=== PATIENT | female | born 1960 | race Caucasian/White ===

== ENCOUNTER → 2016-10-15 | Outpatient (CLI) | payer OTHER ==
[2016-07-16 11:00] VITALS: BP 99/58
[~2016-10-15] MED LIST: CALC1TAB75 PO; CRESTOR5 MG PO; DIPH25TA64 PO; DOCU-27 PO; ESTR1TAB4 PO; HYDR-2666 PO; LISI1TAB5 PO; LISI2.5T PO; MULT-246 PO; OXYC1TAB7 PO; TIZA4TAB PO; TRAM50TA PO; UBID100C26 PO; VENL75CA PO
--- NOTE | 2016-10-15 09:45 | KCIC ---
PROCEDURE AP and lateral lumbar spine radiographs 10/15/2016 HISTORY History of lumbar fusion in July of 2016 with left leg pain since. FINDINGS Standing AP and lateral digital radiographs lumbar spine were obtained. Comparison is made to a MRI the lumbar spine dated 12/15/2015. Mild S-shaped curvature of the thoracolumbar spine is seen. The patient is status post discectomy and fusion at L4-5 using pedicle screws, stabilizing rods and bone graft material. Degenerative changes are seen involving the lower thoracic spine and the L1-2, L2-3 and L3-4 disc spaces predominantly consisting of disc space narrowing, vertebral endplate sclerosis and mild to moderate anterior and posterior vertebral body osteophyte formation. Degenerative changes are seen involving the facet joints of the mid and lower lumbar spine. No fracture or subluxation is seen. IMPRESSION 1. Status post discectomy and fusion at L4-5. 2. Degenerative changes are seen involving the lower thoracic and throughout the lumbar spine as outlined above. No acute osseous abnormality is seen. Electronically signed by: Adonay Barclay MD (Oct 15, 2016 09:44:05)
== END | disposition home or self-care (01) ==
LOC: KCIC 08:19
PROVIDERS: ATTEND Neurological Surgery
DX: M47.894 Other spondylosis, thoracic region (principal); Z98.1 Arthrodesis status
CPT/HCPCS: 72100

== ENCOUNTER → 2016-10-18 | Outpatient (CLI) | payer OTHER ==
[2016-07-16 11:00] VITALS: BP 99/58
--- NOTE | 2016-10-18 12:19 | KCIC ---
PROCEDURE Two-view left hip HISTORY Chronic left hip pain. COMPARISON None FINDINGS No bone lesion or acute fracture. Joint spaces are intact. No dislocation. There appears to be mild narrowing at the superior aspect of the left hip joint, compatible with mild osteoarthritis. In addition, there are small subchondral lucencies at the acetabulum and lateral femoral head. IMPRESSION No acute fracture or dislocation. Findings suggest mild primary osteoarthritis. Electronically signed by: Gunner Escamilla MD (Oct 18, 2016 12:17:21)
== END | disposition home or self-care (01) ==
LOC: KCIC 10:27
PROVIDERS: ATTEND Neurological Surgery
DX: M25.552 Pain in left hip (principal)
CPT/HCPCS: 73502

== ENCOUNTER → 2017-01-20 | Outpatient (CLI) | payer OTHER ==
[2016-07-16 11:00] VITALS: BP 99/58
[~2017-01-20] MED LIST changes: +FERR325T72 PO
[2017-01-20 11:59] LABS: BILIRUBIN,URINE NEGATIVE (NEG); GLUCOSE,URINE NEGATIVE (NEG); NITRITE,URINE POSITIVE (NEG); PH,URINE 5.5; PROTEIN,URINE NEGATIVE (NEG-TRACE); UROBILINOGEN,URINE 0.2 mg/dL (0.2 mg/dL)
[2017-01-20 12:26] LABS: BACTERIA,URINE MANY /HPF (0-FEW); RBC,URINE OCC /HPF (0-2); SQUAMOUS EPITHELIAL CELL,UR MOD /LPF; WBC,URINE >40 /HPF (0-4)
--- NOTE | 2017-01-20 12:48 | EKG ---
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
[2017-01-20 12:55] LABS: BASO # 0.1 x10^3/uL (0.0-0.2); BASO % 1 % (0-3); EOS % 7 % (0-3); HEMOGLOBIN 14.1 g/dL (12.0-15.5); LYMPH # 4.5 x10^3/uL (1.0-4.8); LYMPH % 45 % (24-48); MEAN CORPUSCULAR HEMOGLOBIN 30 pg (25-35); MEAN CORPUSCULAR HGB CONC 34 g/dL (31-37); MEAN CORPUSCULAR VOLUME 90 fL (79-100); MONO % 6 % (0-9); NEUT % 41 % (31-73); PLATELET COUNT 416 x10^3/uL (140-400); RED BLOOD COUNT 4.69 x10^6/uL (3.50-5.40); RED CELL DISTRIBUTION WIDTH 13.5 % (11.5-14.5); WHITE BLOOD COUNT 9.9 x10^3/uL (4.0-11.0)
[2017-01-20 13:01] LABS: ALBUMIN 4.6 g/dL (3.4-5.0); CALCIUM 10.7 mg/dL (8.5-10.1); GFR 57.6; POTASSIUM 3.9 mmol/L (3.5-5.1)
[2017-01-20 13:09] LABS: PROTHROMBIN TIME PATIENT 12.9 SEC (11.7-14.0)
--- NOTE | 2017-01-20 13:32 | RAD ---
Chest, 2 views, 01/20/2017: History: Preop evaluation for hip surgery The heart size and pulmonary vascularity are normal. No pulmonary infiltrates are seen. There is no evidence of pleural fluid. Moderate hypertrophic spurring is present in the spine. IMPRESSION: No acute cardiopulmonary abnormality is detected.
== END | disposition home or self-care (01) ==
LOC: SURGPAT 12:15
PROVIDERS: ATTEND Orthopaedic Surgery
DX: I10 Essential (primary) hypertension (principal)
CPT/HCPCS: 36415; 71020; 80048; 81001; 82040; 85027; 85610; 85651; 85730; 87086; 87641; 93005

== ENCOUNTER 2017-02-04 07:30 | Inpatient (IN) | payer OTHER ==
[~2017-02-04] VITALS: Ht 160 cm; Wt 80.7 kg
[2017-02-04] VITALS (10 sets, daily range): BP systolic 95–169; BP diastolic 67–106
[~2017-02-04 07:30] MED LIST changes: +CELECOXIB 200 MG CAPSULE PO PRN; +FENTANYL PF 100 MCG/2 ML VIAL. IV PRN; +IV RINGERS,LACTATED 1000ML 1,000 ML IV SCH; +LIDOCAINE 1% 1 ML SYRINGE. ID PRN; +MORPHINE SULFATE 5 MG, ROPIVacaine 0.5% PF 60 ML, EPINEPHRINE 0.5 MG in IV NORMAL SALIN... INT ART ONE; +ONDANSETRON PF 4 MG/2 ML VIAL. IV PRN; +PROCHLORPERAZINE 10 MG/2 ML VIAL. IV PRN; +TRANEXAMIC ACID 1,000 MG in IV NORMAL SALINE 50ML 50 ML INJ ONE
[2017-02-04] MEDS ORDERED: TRANEXAMIC ACID 1,000 MG in IV NORMAL SALINE 50ML 50 ML INJ ONE (08:00)
[2017-02-04] MEDS ORDERED: PROPOFOL 20 ML IV ONE (08:51)
[2017-02-04] MEDS ORDERED: LIDOCAINE 2% 100 MG/5 ML SYRINGE. ONE (08:52)
[2017-02-04] MEDS ORDERED: FENTANYL PF 250 MCG/5 ML VIAL. ONE (08:53)
[2017-02-04] MEDS ORDERED: ROCURONIUM 50 MG/5 ML VIAL. ONE ×2 (08:53→14:32)
[2017-02-04] MEDS ORDERED: DEXAMETHASONE SOD PHOS 20 MG/5 ML VIAL. ONE (08:54)
[2017-02-04] MEDS ORDERED: MIDAZOLAM HCL/PF 2 MG/2 ML VIAL. ONE (08:54)
[2017-02-04] MEDS ORDERED: ONDANSETRON PF 4 MG/2 ML VIAL. ONE (08:54)
[2017-02-04] MEDS ORDERED: CELECOXIB 200 MG CAPSULE. ONE (09:50)
[2017-02-04] MEDS ORDERED: HYDROCODONE/APAP 7.5/325MG TABLET. ONE (09:51)
[2017-02-04] MEDS ORDERED: ceFAZolin 2GM PREMIX 2 GM/50 ML BAG IV ONE (10:00)
[2017-02-04 10:08] LABS: INR 1.1 (0.8-1.1); PROTHROMBIN TIME PATIENT 13.4 SEC (11.7-14.0)
[2017-02-04 10:27] LABS: BILIRUBIN,URINE SMALL (NEG); GLUCOSE,URINE NEGATIVE (NEG); NITRITE,URINE NEGATIVE (NEG); PROTEIN,URINE NEGATIVE (NEG-TRACE); UROBILINOGEN,URINE 0.2 mg/dL (0.2 mg/dL)
[2017-02-04] MEDS ORDERED: ALBUMIN HUMAN 5% 500 ML IV ONE (10:45)
[2017-02-04 10:48] LABS: BACTERIA,URINE FEW /HPF (0-FEW); RBC,URINE RARE /HPF (0-2); SQUAMOUS EPITHELIAL CELL,UR OCC /LPF; WBC,URINE OCC /HPF (0-4)
--- NOTE | 2017-02-04 12:27 | HP ---
ADMIT DATE: 02/04/2017 CHIEF COMPLAINT: Left hip pain. HISTORY OF PRESENT ILLNESS: The patient has had ongoing increasing left hip pain despite the use of a cane in the right hand. It is severely affecting her activities of daily living. It is worse on startup, bothers her with increased activity, difficult getting out of the chair, any extremes of hip range of motion. We talked about the possibility of injection, although she feels that is really just delaying inevitable and after discussing in clinic the operative option of hip arthroplasty, wants to proceed with operative evaluation and treatment. PAST MEDICAL HISTORY: Significant for previous neck injury, kidney stones, spinal stenosis, and hypertension. PAST SURGICAL HISTORY: Lumbar fusion and kidney stones. FAMILY HISTORY: Denies any significant family history. SOCIAL HISTORY: She is a former smoker, quit over 10 years ago. Occasional alcohol; social drinker. Denies smoking. MEDICATIONS: Include Crestor, lisinopril, tizanidine, Prempro, and Percocet. ALLERGIES: INCLUDE LODINE. PHYSICAL EXAMINATION: VITAL SIGNS: Per admission sheet. HEENT: Atraumatic, normocephalic. HEART: Regular rate and rhythm. LUNGS: Clear to auscultation bilaterally. ABDOMEN: Benign. MUSCULOSKELETAL: Examination of the left hip reveals decreased range of motion in all planes. Leg lengths are equal. She has normal motion of the right hip, bilateral knees, and ankles. Gait is antalgic favoring the left hip with a Trendelenburg gait that is helped by the cane in her right hand. IMAGING DATA: X-rays show degenerative left hip with loss of joint space. IMPRESSION: 1. Osteoarthritis, left hip. 2. Lumbar stenosis status post lumbar fusion. TREATMENT PLAN: We had covered previously nonoperative treatment options, which she wishes to proceed with surgical evaluation and treatment and verbalizes understanding of the possible risks of infection, nerve or blood vessel damage, leg length inequality, weakness, instability, continued pain, and premature wear or loosening. She agrees to proceed and will undergo total hip arthroplasty with joint center admission to follow. SLOAN CHAPIN MD DR: JANIE/keren JOB#: [id number] / [id number]
[2017-02-04] MEDS ORDERED: diphenhydrAMINE 50 MG/ML VIAL ONE (12:36)
[2017-02-04] MEDS ORDERED: FAMOTIDINE 20 MG/2 ML VIAL ONE (12:44)
[2017-02-04] MEDS ORDERED: MORPHINE SULFATE 10 MG/ML VIAL. ONE (13:09)
[2017-02-04] MEDS ORDERED: FENTANYL PF 100 MCG/2 ML VIAL. ONE (13:13)
[2017-02-04] MEDS ORDERED: LABETALOL 20 MG/4 ML DISP.SYRIN. ONE (13:28)
[2017-02-04] MEDS ORDERED: NEOSTIGMINE METHYLSULFATE 5 MG/5 ML SYRINGE. ONE (13:57)
[2017-02-04] MEDS ORDERED: GLYCOPYRROLATE 1 MG/5 ML VIAL. ONE (13:58)
[2017-02-04] MEDS ORDERED: SEVOFLURANE > 120 MINUTES. IH ONE (14:00)
--- NOTE | 2017-02-04 15:54 | PDOC ---
BRIEF OPERATIVE NOTE Date: Feb 04, 2017 Pre-Op Diagnosis djd left hip Post-Op Diagnosis same Procedure Performed left total hip arthroplasty Surgeon Carla Roth Anesthesia Type: General Blood Loss 500cc Specimens Obtained femoral head to pathoology Findings above Complications none SLOAN CHAPIN MD Feb 04, 2017 15:54
[2017-02-04] MEDS ORDERED: diphenhydrAMINE 50 MG/ML VIAL IV PRN (16:00)
[2017-02-04] MEDS ORDERED: 0.9 % SODIUM CHLORIDE 10 ML DISP.SYRIN. IV PRN (16:00)
[2017-02-04] MEDS ORDERED: FENTANYL PF 100 MCG/2 ML VIAL. IV PRN ×2 (16:00)
[2017-02-04] MEDS ORDERED: CALCIUM CARBONATE 500 MG TAB.CHEW PO PRN (16:00)
[2017-02-04] MEDS: FENTANYL PF 100 MCG/2 ML VIAL. IV PRN ×4 (16:00→16:31)
[2017-02-04] MEDS ORDERED: MORPHINE SULFATE 4 MG/ML DISP.SYRIN. IV PRN ×2 (16:00)
[2017-02-04] MEDS ORDERED: ACETAMINOPHEN 325 MG TABLET. PO PRN (16:00)
[2017-02-04] MEDS ORDERED: MORPHINE SULFATE 2 MG/ML DISP.SYRIN. IV PRN (16:00)
[2017-02-04] MEDS ORDERED: DEXTROSE 50% 25 GM / 50ML DISP.SYRIN. IV PRN (16:00)
[2017-02-04] MEDS ORDERED: PROCHLORPERAZINE 10 MG/2 ML VIAL. IV PRN (16:00)
[2017-02-04] MEDS ORDERED: MORPHINE SULFATE 10 MG/ML VIAL. IV PRN (16:00)
[2017-02-04] MEDS ORDERED: OXYCODONE/APAP 5/325 TABLET. PO PRN (16:00)
[2017-02-04] MEDS ORDERED: TRAMADOL 50 MG TABLET. PO PRN ×2 (16:00)
[2017-02-04] MEDS: MORPHINE SULFATE 2 MG/ML DISP.SYRIN. IV PRN ×2 (16:14→16:29)
--- NOTE | 2017-02-04 16:30 | RAD ---
Pelvis and left hip radiographs History: Postoperative left hip replacement. Comparison: Left hip radiographs 10/18/2016. Findings: AP view of the pelvis. Crosstable lateral view of the left hip. There has been interval placement of left total hip arthroplasty. Relationship of the acetabular cup to the femoral head component appears anatomic. Single acetabular screw is seen. Presence of soft tissue gas and surgical drain is compatible with recent postoperative status. Lower lumbar spine demonstrates discectomy and spine fusion hardware. Impression: Postoperative changes of left total hip arthroplasty.
[2017-02-04] MEDS: HYDROmorphone 2 MG/ML VIAL IV PRN ×4 (16:38→17:11)
[2017-02-04] MEDS ORDERED: ACETAMINOPHEN INTRAVENOUS 100 ML IV PRN (16:45)
[2017-02-04] MEDS: FERROUS SULFATE 325 MG TABLET. PO SCH (17:00)
[2017-02-04] MEDS: IV DEXTROSE 5 %-0.45 % NACL 1,000 ML IV SCH (18:01)
[2017-02-04] MEDS ORDERED: WARFARIN 7.5 MG TABLET. PO ONE (19:00)
[2017-02-04] MEDS: ATORVASTATIN CALCIUM 40 MG TABLET. PO SCH (21:50)
[2017-02-04] MEDS: tiZANidine 4 MG TABLET. PO SCH (21:50)
[2017-02-04] MEDS: CELECOXIB 200 MG CAPSULE. PO SCH (21:51)
[2017-02-04] MEDS: TOTAL VOLUME INT ART SCH (23:56)
[2017-02-04] MEDS: EPINEPHRINE INT ART SCH (23:56)
[2017-02-04] MEDS: BUPIVACAINE MPF 0.25% INT ART SCH (23:56)
[2017-02-05] MEDS: ZOLPIDEM 5 MG TABLET. PO PRN ×2 (00:03→20:47)
[2017-02-05] MEDS: IV DEXTROSE 5 %-0.45 % NACL 1,000 ML IV SCH ×3 (01:54→19:36)
[2017-02-05 03:27] VITALS: BP 143/79
[2017-02-05] MEDS: TOTAL VOLUME INT ART SCH (05:45)
[2017-02-05] MEDS: EPINEPHRINE INT ART SCH (05:45)
[2017-02-05] MEDS: BUPIVACAINE MPF 0.25% INT ART SCH (05:45)
[2017-02-05] MEDS: HYDROCODONE/APAP 7.5/325MG TABLET. PO PRN ×2 (05:51→19:44)
[2017-02-05] MEDS ORDERED: MAGNESIUM HYDROXIDE 2,400 MG/30 ML ORAL.SUSP. PO PRN (06:00)
[2017-02-05] MEDS ORDERED: HYDROCODONE/APAP 7.5/325MG TABLET. PO PRN (06:00)
[2017-02-05 06:19] VITALS: BP 145/78
[2017-02-05 07:50] LABS: INR 1.3 (0.8-1.1); PROTHROMBIN TIME PATIENT 15.2 SEC (11.7-14.0)
[2017-02-05] MEDS: CELECOXIB 200 MG CAPSULE. PO SCH ×2 (09:00→20:47)
[2017-02-05] MEDS ORDERED: NON FORMULARY ITEM (Multivitamin (Multi-Vitamin Daily) 1 EACH) PO SCH (09:00)
[2017-02-05] MEDS: HYDROCHLOROTHIAZIDE 12.5 MG CAPSULE. PO SCH (09:00)
[2017-02-05] MEDS: LISINOPRIL 20 MG TABLET PO SCH (09:00)
[2017-02-05] MEDS ORDERED: FERROUS SULFATE 325 MG TABLET. PO SCH (09:00)
[2017-02-05] MEDS: FERROUS SULFATE 325 MG TABLET. PO SCH ×2 (09:37→16:13)
[2017-02-05] MEDS: SENNOSIDES/DOCUSATE 8.6/50MG TABLET. PO SCH (09:38)
[2017-02-05] MEDS: MULTIVITAMIN with MINERAL TABLET. PO SCH (09:38)
[2017-02-05] MEDS: VENLAFAXINE XR 37.5 MG CAP.ER.24H. PO SCH ×2 (09:38→20:47)
[2017-02-05] MEDS: tiZANidine 4 MG TABLET. PO SCH ×2 (09:39→20:47)
[2017-02-05] MEDS: OXYCODONE/APAP 7.5/325 TABLET. PO PRN ×3 (09:47→16:13)
--- NOTE | 2017-02-05 10:47 | OP ---
DATE OF SURGERY: 02/04/2017 PREOPERATIVE DIAGNOSIS: Left hip DJD. POSTOPERATIVE DIAGNOSIS: Left hip DJD. PROCEDURE: Left total hip arthroplasty. SURGEON: Ramírez Aguirre M.D. INDUSTRIAL TRUCK OPERATOR: First Oj Velez. ESTIMATED BLOOD LOSS: 500 mL. COMPLICATIONS: None. OPERATIVE INDICATIONS: The patient is a 56-year-old female with increasing left hip pain and degenerative changes on x-ray, severely affecting her activities of daily living. She walks with an antalgic gait, has pain, worse on startup, worse with activity, overall somewhat better with rest, has been unresponsive to nonoperative treatments. We had gone over the possibility of infection, nerve or blood vessel damage, continued pain, leg length inequality, nerve or blood vessel damage among others. All her questions were answered. Consent was obtained and she agrees to proceed with operative evaluation and treatment. DESCRIPTION OF PROCEDURE: The patient was identified, procedure verified, the patient was placed in the supine position on the [place] fracture table. Both feet were placed in traction boots and fluoroscopic guidance used to evaluate initial positioning and leg lengths. The left hip was then prepped and draped in the standard sterile fashion. After timeout was performed, the patient and procedure identified and verified, an incision was made just distal and lateral to the anterior superior iliac spine along the course of the tensor fascia rohit. Dissection was carried out down to the fascia and the fascia of the tensor fascia rohit incised at approximately its mid belly. Tensor fascia rohit muscle was brought laterally, atraumatically and retracted. The interval between the tensor and the rectus femoris was exploited and anterior circumflex blood vessels were coagulated with the Aquamantys device as was the anterior aspect of the capsule. Retractors were placed to allow visualization. Capsule was split in a T-fashion. A femoral neck cut was then made under fluoroscopic guidance and a napkin ring of bone was removed from the femoral neck and femoral head was removed and sized at approximately a size 43. The labrum was then excised under direct visualization. The contents of the fovea removed and coagulation carried out with Aquamantys device. Reaming was carried out up to a size 50 with the size 52 Continuum acetabular liner being placed anatomically with a single and superiorly directed screw. Excellent positioning and bite was noted. Trial liner was placed. The femur was then exposed by bringing the leg into extension and adduction with a capsular release preserving the external rotator attachments. Broaching was carried out significantly lateralizing the component and a size one Avenir broach was trial fit with a -3.5, 36 mm head trial. Excellent stability was noted. Leg length was increased by about 4-5 mm. Trial components were then removed. A size 36 mm vitamin E acetabular liner was impacted into place, a size #1 Avenir standard femoral component impacted as expected and a size 36 mm, -3.5 ceramic femoral head was impacted in place to engage the Germain taper, was reduced and noted to have excellent stability and increase in her leg length, approximately 4 mm. Thorough irrigation carried out with normal saline solution. The area was infused with pain catheter mixture. Pain catheter and Hemovac drain were placed and the closure of the fascia carried out with Vicryl in a running fashion. Subcutaneous closure with buried Vicryl sutures, subcuticular Monocryl, Steri-Strips and Mastisol were applied. The patient was extubated, returned to recovery room in stable condition having tolerated the procedure well. Please note, Tori Roth, Cotton Program Technician, was present throughout the procedure and assisted in prepping, draping, retraction and the subcuticular closure. RAMÍREZ AGUIRRE MD DR: JANIE/keren JOB#: [id number] / [id number]
[2017-02-05 11:15] VITALS: BP 78/45
[2017-02-05 12:18] VITALS: BP 73/41
--- NOTE | 2017-02-05 14:43 | PDOC ---
PROGRESS NOTES Subjective Subjective Problems overnight: Got up and around several times last night and this morning sharp pain is significantly less she does have some soreness in the hip and some mild weakness Objective Vital Signs Vital Signs Date Time Temp Pulse Resp B/P Pulse Ox O2 Delivery O2 Flow Rate FiO2 02/05/17 12:57 Room Air 02/05/17 12:18 78 73/41 02/05/17 11:15 97.5 16 96 97.5 02/05/17 06:19 2.0 Physical Exam Hip dressing clean dry intact leg lengths very close to equal as very slight increase on left good stability intact distal neurovascular status Labs Laboratory Tests Test 02/04/17 09:25 02/04/17 09:30 02/05/17 06:50 Prothrombin Time 13.4SEC (11.7-14.0) 15.2SEC (11.7-14.0) Prothromb Time International Ratio 1.1 (0.8-1.1) 1.3 (0.8-1.1) Activated Partial Thromboplast Time 37SEC (24-38) Urine Collection Type U cath Urine Color Yellow Urine Clarity Clear Urine pH 5.0 Urine Specific [place] >=1.030 Urine Protein Negativemg/dL (NEG-TRACE) Urine Glucose (UA) Negativemg/dL (NEG) Urine Ketones (Stick) Negativemg/dL (NEG) Urine Blood Negative (NEG) Urine Nitrite Negative (NEG) Urine Bilirubin Small (NEG) Urine Urobilinogen Dipstick 0.2mg/dL (0.2 mg/dL) Urine Leukocyte Esterase Negative (NEG) Urine RBC Rare/HPF (0-2) Urine WBC Occ/HPF (0-4) Urine Squamous Epithelial Cells Occ/LPF Urine Bacteria Few/HPF (0-FEW) Urine Hyaline Casts Moderate/HPF Urine Mucus Mod/LPF Laboratory Tests Test 02/05/17 06:50 Prothrombin Time 15.2SEC (11.7-14.0) Prothromb Time International Ratio 1.3 (0.8-1.1) Imaging Postop x-rays show excellent alignment of the left total hip arthroplasty Assessment Assessment POD# [1], S/P [left total hip arthroplasty anterior approach] Problems: Plan Plan of Care Weightbearing as tolerated no hip precautions secondary to anterior approach Coumadin anticoagulation Planned outpatient physical therapy on discharge Patient wishes to go home early if possible which is certainly possible if her progress as accelerated on physical therapy and otherwise stable SLOAN CHAPIN MD Feb 05, 2017 14:43
[2017-02-05 15:00] VITALS: BP 121/78
[2017-02-05] MEDS ORDERED: BISACODYL 10 MG SUPP.RECT. PR PRN (16:00)
[2017-02-05] MEDS ORDERED: WARFARIN 5 MG TABLET. PO ONE (16:00)
[2017-02-05 18:00] VITALS: BP 122/64
[2017-02-05] MEDS: ATORVASTATIN CALCIUM 40 MG TABLET. PO SCH (20:47)
[2017-02-06] MEDS: HYDROCODONE/APAP 10/325 TABLET. PO PRN ×4 (00:14→13:01)
[2017-02-06 05:00] VITALS: BP 125/72
[2017-02-06 05:07] LABS: HEMATOCRIT 24.9 % (36.0-47.0); HEMOGLOBIN 8.5 g/dL (12.0-15.5)
[2017-02-06 05:23] LABS: INR 1.8 (0.8-1.1); PROTHROMBIN TIME PATIENT 19.8 SEC (11.7-14.0)
[2017-02-06] MEDS: VENLAFAXINE XR 37.5 MG CAP.ER.24H. PO SCH (08:07)
[2017-02-06] MEDS: tiZANidine 4 MG TABLET. PO SCH (08:07)
[2017-02-06] MEDS: SENNOSIDES/DOCUSATE 8.6/50MG TABLET. PO SCH (08:07)
[2017-02-06] MEDS: FERROUS SULFATE 325 MG TABLET. PO SCH (08:07)
[2017-02-06] MEDS: CELECOXIB 200 MG CAPSULE. PO SCH (08:07)
[2017-02-06] MEDS: MULTIVITAMIN with MINERAL TABLET. PO SCH (08:07)
[2017-02-06] MEDS: HYDROCHLOROTHIAZIDE 12.5 MG CAPSULE. PO SCH (08:08)
[2017-02-06] MEDS: LISINOPRIL 20 MG TABLET PO SCH (08:08)
[2017-02-06 08:09] LABS: HEMATOCRIT 26.5 % (36.0-47.0)
[2017-02-06] MEDS ORDERED: OXYC-250 PO (11:12)
[2017-02-06 11:15] VITALS: BP 90/58
[2017-02-06] MEDS ORDERED: WARF4TAB7 PO (12:02)
[2017-02-06] MEDS ORDERED: WARFARIN 4 MG TABLET. PO ONE ×2 (13:00→16:00)
--- NOTE | 2017-02-06 13:15 | PDOC ---
ORTHO PROGRESS NOTES Subjective Patient reports that she is doing well. Pain is controlled. Denies numbness or tingling, chest pain or shortness of breath. Anticipates going home today. Post-op Day: 2 (Left anterior total hip arthroplasty) Vitals Vital Signs Date Time Temp Pulse Resp B/P Pulse Ox O2 Delivery O2 Flow Rate FiO2 02/06/17 13:01 18 96 Room Air 02/06/17 11:15 97.9 90 90/58 97.9 02/06/17 09:31 2.0 Labs Laboratory Tests Test 02/05/17 06:50 02/06/17 04:10 02/06/17 07:40 Prothrombin Time 15.2SEC (11.7-14.0) 19.8SEC (11.7-14.0) Prothromb Time International Ratio 1.3 (0.8-1.1) 1.8 (0.8-1.1) Hemoglobin 8.5g/dL (12.0-15.5) 9.0g/dL (12.0-15.5) Hematocrit 24.9% (36.0-47.0) 26.5% (36.0-47.0) Mean Corpuscular Hemoglobin Concent 34g/dL (31-37) Laboratory Tests Test 02/06/17 04:10 02/06/17 07:40 Hemoglobin 8.5g/dL (12.0-15.5) 9.0g/dL (12.0-15.5) Hematocrit 24.9% (36.0-47.0) 26.5% (36.0-47.0) Prothrombin Time 19.8SEC (11.7-14.0) Prothromb Time International Ratio 1.8 (0.8-1.1) Mean Corpuscular Hemoglobin Concent 34g/dL (31-37) Notes Patient is awake and alert sitting up in chair. Breathing unlabored, no acute distress. Incision is covered with dressing, dressing is intact without signs or symptoms of infection. Moderate edema. Neurovascular intact left lower extremity Problems: (1) Degenerative joint disease of left hip Assessment and Plan Discharge home today with outpatient PT Follow-up with Dr. Aguirre or myself in 2 weeks Anticoagulation per pharmacy Problem Qualifiers (1) Degenerative joint disease of left hip: Osteoarthritis type: primary Qualified Code: M16.12 - Unilateral primary osteoarthritis, left hip STEPHIE CARRASQUILLO PROOF LOAD MECHANIC Feb 06, 2017 13:15
--- NOTE | 2017-02-07 15:44 | PATHOLOGY ---
PATHOLOGY REPORT * * * * * * * * FINAL DIAGNOSIS: Femoral head with surrounding soft tissue, "left hip bone and tissue": - Degeneration of cartilage with eburnation and osteophytic lipping consistent with degenerative joint disease. (FRANCO:; d/t: 02/07/17) REPORT ELECTRONICALLY SIGNED BY: Ethan Barron M.D. DATE/TIME: 02/07/2017 15:43 * * * * * * * * GROSS PATHOLOGY: Received in formalin labeled "Francesca Cedeno, left hip bone and tissue," is a femoral head measuring 4.7 x 4.7 x 3.7 cm in greatest dimensions and a 6.2 x 5.9 x 1.9 cm aggregate of bone reamings. The articular surface is light kennedy and smooth to granular in appearance with evidence of eburnation and osteophytic lipping. Sectioning the bone reveals light kennedy cut surfaces. Dye Room Helper tissue is submitted in cassette A1, following decalcification. (CAA; 02/06/2017) INITIAL CPT CODE(S): A; 17747, 65747 Professional services performed by [facility] [place] [address] Technical services performed by [facility] at [address] [place] [address] [address] [address]. SPECIMEN(S) RECEIVED: A.Left hip bone and tissue CLINICAL HISTORY: Osteoarthritis left hip PATIENT: FRANCESCA CEDENO /AGE: 9 1960 (Age: 56) PATIENT #: [id number] ALT CASE #: SPECIMEN COLLECTION DATE: 02/04/2017 SPECIMEN RECEIVED DATE: 02/05/2017 [facility] - [address] [place] [address] - PHONE: [phone] * * * END OF REPORT * * *
== END 2017-02-06 15:52 | disposition home or self-care (01) | DRG 470 ==
LOC: OPSVCIP 08:37 → 4 SOUTHEST 17:30
PROVIDERS: ADMIT Orthopaedic Surgery; ATTEND Orthopaedic Surgery
PROC: 0SRB03Z Replacement of Left Hip Joint with Ceramic Synthetic Substitute, Open Approach (ICD-10-PCS; principal; 2017-02-04 10:55)
DX: M16.12 Unilateral primary osteoarthritis, left hip (principal); I10 Essential (primary) hypertension; M48.06 Spinal stenosis, lumbar region; Z87.442 Personal history of urinary calculi; Z87.891 Personal history of nicotine dependence; Z98.1 Arthrodesis status; Z88.6 Allergy status to analgesic agent
CPT/HCPCS: 36415; 73501; 76000; 81001; 85014; 85018; 85610; 85730; 86850; 86900; 86901; 88304; 88311; C1887; J0131; J0171; J0690; J0780; J1100; J1170; J1200; J2250; J2270; J2405; J2704; J2710; J2795; J3010; J3490; J7030; J7120; P9045; S0028; 97116; 97150

== ENCOUNTER → 2017-04-10 | Outpatient (CLI) | payer OTHER ==
[~2017-04-10] MED LIST changes: -CELECOXIB 200 MG CAPSULE PO PRN; +DOCU-109 PO; -DOCU-27 PO; -FENTANYL PF 100 MCG/2 ML VIAL. IV PRN; -HYDR-2666 PO; +HYDR-2758 PO; -IV RINGERS,LACTATED 1000ML 1,000 ML IV SCH; -LIDOCAINE 1% 1 ML SYRINGE. ID PRN; -MORPHINE SULFATE 5 MG, ROPIVacaine 0.5% PF 60 ML, EPINEPHRINE 0.5 MG in IV NORMAL SALIN... INT ART ONE; -ONDANSETRON PF 4 MG/2 ML VIAL. IV PRN; +OXYC-328 PO; -PROCHLORPERAZINE 10 MG/2 ML VIAL. IV PRN; -TRANEXAMIC ACID 1,000 MG in IV NORMAL SALINE 50ML 50 ML INJ ONE; +WARF4TAB7 PO
--- NOTE | 2017-04-10 09:05 | KCIC ---
Bilateral digital screening mammograms: Reason for examination: Routine screening. Comparison is made to previous studies dated 04/08/2016 and 04/07/2015. The skin and nipples show no abnormalities. No abnormal axillary lymph nodes are seen. The breast parenchyma is heterogeneously dense. (Breast density: Category C.) There are no dominant masses, suspicious calcifications or architectural distortion. Impression: No evidence of malignancy. Recommend routine screening. Your patient's mammogram demonstrates that she has dense breast tissue (breast density category C or D), which could hide abnormalities, and if she has other risk factors for breast cancer that have been identified, she might benefit from supplemental screening tests that may be suggested by you as her ordering physician. Dense breast tissue, in and of itself, is a relatively common condition. Therefore, this information is not provided to cause undue concern, but rather to raise your awareness and to promote discussion with your patient regarding the presence of other risk factors, in addition to dense breast tissue. Your patient's mammography results will be sent to her. BI-RAD Category 2: Benign. "Our facility is accredited by the [employer] Mammography Program." This patient's information has been entered into a reminder system for the patient to be notified with the results of her examination and a target date for the next mammogram. Electronically signed by: Maria L Mooney MD (04/10/2017 9:02 AM)
== END | disposition home or self-care (01) ==
LOC: KCIC MAMMO 08:16
PROVIDERS: ATTEND Obstetrics & Gynecology
DX: Z12.31 Encounter for screening mammogram for malignant neoplasm of breast (principal)
CPT/HCPCS: G0202; 77067

== ENCOUNTER → 2019-07-14 | Outpatient (CLI) | payer MEDICARE, OTHER ==
[~2019-07-14] MED LIST changes: -HYDR-2758 PO; +HYDR-2761 PO; +LISI1TAB19 PO; -LISI1TAB5 PO; -OXYC-328 PO; +OXYC1TAB22 PO; -TIZA4TAB PO; +TIZA4TAB2 PO; +WARF4TAB64 PO; -WARF4TAB7 PO
--- NOTE | 2019-07-14 18:43 | KCIC ---
Bilateral digital screening mammograms: Reason for examination: Routine screening. Comparison is made to previous studies dated 04/10/2017 and 04/08/2016. Interpretation was made with the benefit of CAD. The skin and nipples show no abnormalities. No abnormal axillary lymph nodes are seen. The breast parenchyma is heterogeneously dense. (Breast density: Category C.) There are no dominant masses, suspicious calcifications or architectural distortion. A few benign-appearing calcifications are seen. Impression: No evidence of malignancy. Recommend routine screening. Your patient's mammogram demonstrates that she has dense breast tissue (breast density category C or D), which could hide abnormalities, and if she has other risk factors for breast cancer that have been identified, she might benefit from supplemental screening tests that may be suggested by you as her ordering physician. Dense breast tissue, in and of itself, is a relatively common condition. Therefore, this information is not provided to cause undue concern, but rather to raise your awareness and to promote discussion with your patient regarding the presence of other risk factors, in addition to dense breast tissue. Your patient's mammography results will be sent to her. BI-RAD Category 2: Benign. "Our facility is accredited by the [employer] Mammography Program." This patient's information has been entered into a reminder system for the patient to be notified with the results of her examination and a target date for the next mammogram. Electronically signed by: Maria L Mooney MD (07/14/2019 6:40 PM) [id number]
== END | disposition home or self-care (01) ==
LOC: KCIC MAMMO 09:49
PROVIDERS: ATTEND Obstetrics & Gynecology
DX: Z12.31 Encounter for screening mammogram for malignant neoplasm of breast (principal); N64.89 Other specified disorders of breast
CPT/HCPCS: 77067

== ENCOUNTER → 2019-12-10 | Outpatient (CLI) | payer MEDICARE ==
--- NOTE | 2019-12-10 11:09 | KCIC ---
MRI Cervical Spine Without Contrast History: Neck pain, right arm pain Technique: Multiplanar, multi sequential noncontrast MR imaging was performed of the cervical spine. Comparison: None Findings: There is some motion degradation, somewhat limits accurate catheterization of the neural foramina on axial images. Cervical cord caliber is within normal limits without defined or expansile signal abnormality. Cervical vertebral body stature is mostly preserved, superior Schmorl's node T1. There is grade 1 anterior spondylolisthesis C3-4. There is reversal of the lordotic curvature centered near C5. There is moderate to severe degenerative disc disease C4-5, C6-7, C7-T1, to a somewhat lesser degree at C5-6, minimally at C3-4. Mild amorphous endplate edema such as C4-5 and C5-6 and to lesser degree at C6-7 is likely reactive/degenerative in etiology. C2-C3: Spinal canal is adequate. There is facet degenerative change. There is likely mild posterior neural foramina compromise bilaterally greater on the right. C3-C4: There is fairly severe right facet degenerative change, to a lesser degree on the left. There is partial uncovering of the posterior aspect of the disc due to spondylolisthesis. Central canal is narrowed to about 9 mm. There is probable mild left and moderate to severe right neural foramina compromise although poorly characterized due to motion. C4-C5: There is minimal disc osteophyte complex and bulge, central canal minimally narrowed to about 8 to 9 mm. There is bilateral facet degenerative change greater on the left, also uncovertebral degenerative change greater on the right. There is suspected fairly severe right and likely at least moderate left neural foramina compromise although poorly characterized due to motion. C5-C6: There is disc osteophyte complex and bulge, mild indentation upon the ventral thecal sac greater far right recess. Central canal narrowed to about 8 to 9 mm with a greater degree of moderate right lateral recess stenosis. There is uncovertebral degenerative change on the right. There is severe right and probable mild left neural foramina compromise. C6-C7: There is disc osteophyte complex and superimposed bulge with indentation upon the ventral thecal sac greatest centrally and in the right lateral recess. There is effacement of ventral subarachnoid space and contact of the cord. Central canal is narrowed to about 7 mm with a somewhat greater degree of moderate right lateral recess stenosis. There is right uncovertebral degenerative change contributing to severe narrowing of the right neural foramen, left neural foramen likely adequate. C7-T1: There is very minimal disc osteophyte complex. Central canal is adequate about 11 mm. Right neural foramen is adequate. There is left uncovertebral degenerative change contributing to likely [id number] narrowing of the left neural foramen. Impression: 1. There is spinal stenosis about 7 mm at C6-7 with a greater degree of moderate right lateral recess stenosis at this level, other central canal stenosis as described C3-4 through C5-C6 and moderate right lateral recess stenosis at C5-6. 2. There is multilevel cervical degenerative disc disease and spondylosis greatest C4-5 to C7-T1. 3. Multilevel facet and uncovertebral degenerative change contributes to multilevel cervical neural foramina compromise as stated although somewhat limited characterization due to motion. Neural foramina compromise is likely greatest on the right at C3-C4 through C6-7, lesser degree of narrowing at other levels. Electronically signed by: Chicho Wheat MD (12/10/2019 11:06 AM) [id number]
== END ==
LOC: KCIC MRI 09:55
PROVIDERS: ATTEND Nurse Practitioner
DX: M50.33 Other cervical disc degeneration, cervicothoracic region (principal); M47.813 Spondylosis without myelopathy or radiculopathy, cervicothoracic region; M43.12 Spondylolisthesis, cervical region; M25.78 Osteophyte, vertebrae; M48.02 Spinal stenosis, cervical region; M79.641 Pain in right hand
CPT/HCPCS: 72141

== ENCOUNTER → 2020-07-17 | Outpatient (CLI) | payer MEDICARE ==
[~2020-07-17] MED LIST changes: -LISI1TAB19 PO; +LISI1TAB37 PO
--- NOTE | 2020-07-17 18:59 | KCIC ---
Bilateral digital screening mammograms with 3-D tomosynthesis: Reason for examination: Routine screening. Comparison is made to previous studies dated back to 04/08/2016. Bilateral mammograms in CC and oblique projections were obtained with 2-D imaging and 3-D tomosynthesis imaging on a Siemens Inspiration unit and reviewed on the workstation. Interpretation was made with the benefit of CAD. The skin and nipples show no abnormalities. No abnormal axillary lymph nodes are seen. The breast parenchyma is extremely dense. (Breast density: Category D.) There continues to be some nodularity in the parenchyma inferiorly in the right breast on oblique view probably around the 7:00 position. This has not changed. There are no new Dominant masses, suspicious calcifications or architectural distortion. Impression: No evidence of malignancy. Recommend routine screening. Your patient's mammogram demonstrates that she has dense breast tissue (breast density category C or D), which could hide abnormalities, and if she has other risk factors for breast cancer that have been identified, she might benefit from supplemental screening tests that may be suggested by you as her ordering physician. Dense breast tissue, in and of itself, is a relatively common condition. Therefore, this information is not provided to cause undue concern, but rather to raise your awareness and to promote discussion with your patient regarding the presence of other risk factors, in addition to dense breast tissue. Your patient's mammography results will be sent to her. BI-RAD Category 2: Benign. "Our facility is accredited by the [employer] Mammography Program." This patient's information has been entered into a reminder system for the patient to be notified with the results of her examination and a target date for the next mammogram. Electronically signed by: Maria L Mooney MD (07/17/2020 6:56 PM) [id number]
== END | disposition home or self-care (01) ==
LOC: KCIC MAMMO 10:20
PROVIDERS: ATTEND Obstetrics & Gynecology
DX: Z12.31 Encounter for screening mammogram for malignant neoplasm of breast (principal); N64.89 Other specified disorders of breast
CPT/HCPCS: 77067

== ENCOUNTER → 2021-01-17 | Outpatient (CLI) | payer MEDICARE ==
[~2021-01-17] MED LIST changes: +CALC-627 PO; -CALC1TAB75 PO
--- NOTE | 2021-01-17 11:19 | KCIC ---
EXAMINATION: Magnetic resonance imaging (MRI) of the lumbar spine without contrast 01/17/2021 9:45 AM HISTORY: Low back pain with 2 prior surgeries. Right radiculopathy TECHNIQUE: Multiplanar multi-weighted MRI of the lumbar spine was performed without intravenous contr ast using the standard lumbar spine protocol. Contrast information: None administered. COMPARISON: None available. FINDINGS: Posterior fusion hardware is identified at L4-L5 with bilateral pedicle screws and dual rods. Moderat e disc height loss identified at T9-T10 with minimal anterolisthesis. Modic type II endplate degenera tive changes at T10-T11 with moderate disc height loss, disc desiccation and annular fissure. There i s mild to moderate spinal canal stenosis at T9-T10 and T10-T11 with mild deformity of the distal thor acic cord without definite cord signal alteration. Moderate disc height loss at T11-T12 with Modic ty pe I endplate degenerative changes and circumferential disc bulge resulting in mild spinal canal sten osis. Conus medullaris terminates at T12-L1. Distal spinal cord signal intensity is normal in all seq uences. Mild disc height loss at T12-L1 with disc desiccation and disc bulge resulting in mild spinal canal stenosis. There is dextro convex scoliosis of the lumbar spine with apex dextrocurvature at L3 -L4. There is minimal retrolisthesis of L1 on L2. 3 mm retrolisthesis of L2 on L3 and L3 on L4. Moder ate disc height loss at L1-L2, L2-3 and mild disc height loss at L3-L4. Modic type II endplate degene rative changes are identified at L3-L4 and L4-L5. Mild Modic type I endplate degenerative changes theresa ntified at L1-L2. T9-T10: There is a circumferential disc bulge. Moderate facet arthropathy. Moderate bilateral neurofo raminal stenosis. Moderate spinal canal stenosis with deformity of the cord without definite cord sig nal alteration. T10-T11: There is a moderate circumferential disc bulge. There is mild facet arthropathy. Mild to mod erate spinal canal stenosis. Moderate right neural foraminal stenosis. Mild deformity cord without co rd signal alteration. T11-T12: There is a circumferential disc bulge. Mild facet arthropathy. Mild right neuroforaminal cherry nosis. Mild spinal canal stenosis without deformity of the cord or cord signal alteration. T12-L1: Mild disc bulge. Mild to moderate facet arthropathy. No significant neural foraminal stenosis . Mild spinal canal stenosis, exacerbated by epidural lipomatosis. L1-L2: There is a moderate circumferential disc bulge asymmetric to the right. Mild facet arthropathy . Moderate left and mild right neuroforaminal stenosis. Moderate spinal canal stenosis, exacerbated b y epidural lipomatosis. L2-L3: There is a circumferential disc bulge. There is mild to moderate left facet arthropathy. Moder ate to severe left neuroforaminal stenosis. This left lateral recess stenosis. Mild to moderate spina l canal stenosis. L3-L4: There is a disc bulge asymmetric to the left. Moderate left and moderate facet arthropathy. Se anali left neuroforaminal stenosis. There is left lateral recess stenosis. Mild spinal canal stenosis. L4-L5: This level is fused. Left hemilaminectomy changes. No residual neuroforaminal or spinal canal stenosis. L5-S1: Disc is normal in configuration. Severe right and moderate left facet arthropathy. Mild to mod erate right neural foraminal stenosis. No spinal canal stenosis. IMPRESSION: Moderate to advanced degenerative changes of the thoracolumbar spine, as described in detail above. P osterior fusion identified at L4-L5 without evidence for hardware failure. Electronically signed by: Kelly Ocampo MD (01/17/2021 11:16 AM) [id number]
== END ==
LOC: KCIC MRI 09:17
PROVIDERS: ATTEND Family Medicine
DX: M47.815 Spondylosis without myelopathy or radiculopathy, thoracolumbar region (principal); M47.818 Spondylosis without myelopathy or radiculopathy, sacral and sacrococcygeal region; M48.07 Spinal stenosis, lumbosacral region; M48.02 Spinal stenosis, cervical region
CPT/HCPCS: 72148

== ENCOUNTER → 2021-03-15 | Outpatient (CLI) | payer MEDICARE ==
[~2021-03-15] MED LIST changes: +BUPIVACAINE MPF 0.5% 10 ML VIAL. INT ART ONE; +IOHEXOL 300 MG/ML 50 ML VIAL. INT ART ONE; +LIDOCAINE 1% Multi-Dose 20 ML VIAL. ID ONE; +methylPREDNISolone ACETATE 40 MG/ML VIAL. INT ART ONE
--- NOTE | 2021-03-15 12:15 | KCIC ---
Therapeutic right hip injection using fluoroscopic guidance: Indication: Osteoarthritis. Right hip pain. Technique: The procedure was explained to the patient as were potential risks including bleeding and infection and allergic reaction. All questions were answered. Informed written consent was obtained. A timeout was performed which confirmed the name of the patient and the date of and the type of procedure and the side of the procedure. Arm band was confirmed. Allergies to medications were revie wed. No allergies to medications utilized today. An appropriate skin cameron was made using fluoroscopic guidance. The right hip was prepped and draped in the usual sterile manner. Following administration of local anesthetic, a 22-gauge spinal needle was advanced into the right hip joint without difficul ty, with care taken to avoid the vascular structures. Stylet was removed and following negative aspir ation, a mixture of 4 cc Omnipaque-300, 2 cc (80 mg) Depo-Medrol and 4 cc 0.5% bupivacaine and 4 cc of 1% lidocaine was injected without difficulty. Fluoroscopy demonstrates uniform and satisfactory di stribution of the injection throughout the right hip joint. Fluoroscopic spot image was performed. Th e needle was removed. There was good hemostasis at the injection site. The patient left in stable con dition without immediate complication. The patient was given postprocedural instructions and instruct ed to contact us or the emergency room if there are any complications. Total fluoroscopic time: 7 seconds. Total fluoroscopic spot views: 1. Impression: Uncomplicated therapeutic right hip injection. Electronically signed by: Álvaro Ornelas MD (03/15/2021 12:13 PM) [id number]
== END | disposition home or self-care (01) ==
LOC: KCIC 10:08
PROVIDERS: ATTEND Orthopaedic Surgery
DX: M16.11 Unilateral primary osteoarthritis, right hip (principal); I10 Essential (primary) hypertension; E78.00 Pure hypercholesterolemia, unspecified; Z87.891 Personal history of nicotine dependence; Z79.899 Other long term (current) drug therapy; Z98.890 Other specified postprocedural states
CPT/HCPCS: 20610; 77002; J1030; J3490; Q9967

== ENCOUNTER → 2021-07-03 | Outpatient (CLI) | payer MEDICARE ==
[~2021-07-03] MED LIST changes: -BUPIVACAINE MPF 0.5% 10 ML VIAL. INT ART ONE; +GLUC1TAB71 PO; -IOHEXOL 300 MG/ML 50 ML VIAL. INT ART ONE; -LIDOCAINE 1% Multi-Dose 20 ML VIAL. ID ONE; -LISI2.5T PO; +LISI2.5T12 PO; -methylPREDNISolone ACETATE 40 MG/ML VIAL. INT ART ONE
--- NOTE | 2021-07-03 15:04 | EKG ---
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
[2021-07-03 15:17] LABS: BASO # 0.2 x10^3/uL (0.0-0.2); BASO % 2 % (0-3); EOS # 0.5 x10^3/uL (0.0-0.7); EOS % 5 % (0-3); HEMATOCRIT 39.1 % (36.0-47.0); HEMOGLOBIN 13.5 g/dL (12.0-15.5); LYMPH # 3.2 x10^3/uL (1.0-4.8); LYMPH % 38 % (24-48); MEAN CORPUSCULAR HEMOGLOBIN 31 pg (25-35); MEAN CORPUSCULAR HGB CONC 35 g/dL (31-37); MEAN CORPUSCULAR VOLUME 90 fL (79-100); MONO # 0.5 x10^3/uL (0.0-1.1); MONO % 7 % (0-9); NEUT # 4.1 x10^3/uL (1.8-7.7); NEUT % 48 % (31-73); PLATELET COUNT 336 x10^3/uL (140-400); RED BLOOD COUNT 4.37 x10^6/uL (3.50-5.40); RED CELL DISTRIBUTION WIDTH 14.3 % (11.5-14.5); WHITE BLOOD COUNT 8.5 x10^3/uL (4.0-11.0)
[2021-07-03 15:47] LABS: ALBUMIN 4.2 g/dL (3.4-5.0); CALCIUM 10.3 mg/dL (8.5-10.1); CREATININE 0.9 mg/dL (0.6-1.0); GFR 63.9; POTASSIUM 3.3 mmol/L (3.5-5.1)
--- NOTE | 2021-07-04 08:18 | RAD ---
AP and Lateral Views of the Chest 07/03/2021 3:32 PM Indication: Reason: PRE OP SURGERY FOR R HIP REPLACEMENT Comparison: Chest radiograph January 20, 2017 Findings: There is no focal consolidation or infiltrate identified. The cardiomediastinal silhouette is within normal limits. There is no evidence of pneumothorax or pleural effusion. No acute osseous a bnormalities are identified. Impression: No evidence of acute cardiopulmonary process. Electronically signed by: Luis Lemus MD (07/04/2021 8:15 AM) [id number]
[2021-07-05 02:09] LABS: HEMOGLOBIN A1C 5.8 % (4.8-5.6)
== END ==
LOC: SURGPAT 13:32
PROVIDERS: ATTEND Orthopaedic Surgery
DX: Z02.71 Encounter for disability determination (principal); R94.31 Abnormal electrocardiogram [ECG] [EKG]; E66.3 Overweight
CPT/HCPCS: 36415; 71046; 80048; 82040; 82306; 83036; 85025; 85610; 85651; 85730; 87641; 93005

== ENCOUNTER 2021-07-17 06:36 | Observation (INO) | payer MEDICARE ==
[2021-07-03 14:22] VITALS: BP 129/79
[~2021-07-17] VITALS: Ht 160 cm; Wt 84.6 kg
[2021-07-17] VITALS (8 sets, daily range): BP systolic 110–157; BP diastolic 72–96
[~2021-07-17 06:36] MED LIST changes: +ACETAMINOPHEN 500 MG TABLET PO PRN; +GABAPENTIN 300 MG CAPSULE. PO PRN; +IV RINGERS,LACTATED 1000ML 1,000 ML IV SCH; +MELOXICAM 7.5 MG TABLET PO ONE; +PROCHLORPERAZINE 10 MG/2 ML VIAL. IVP PRN; +TRANEXAMIC ACID 1,000 MG in IV NS 50ML -- 1ST BAG INJ ONE; +fentaNYL PF VIAL 100 MCG/2 ML VIAL IVP PRN
[2021-07-17] MEDS ORDERED: fentaNYL PF VIAL 250 MCG/5 ML VIAL ONE (07:15)
[2021-07-17] MEDS ORDERED: MIDAZOLAM HCL/PF 2 MG/2 ML VIAL. ONE (07:15)
[2021-07-17] MEDS ORDERED: PROPOFOL 10 MG/ML (20ML) VIAL. IV ONE (07:15)
[2021-07-17] MEDS ORDERED: LIDOCAINE 2% PF 5 ML VIAL. ONE (07:15)
[2021-07-17] MEDS ORDERED: TRANEXAMIC ACID in NS IVPB 100 ML ONE (07:19)
[2021-07-17 07:34] LABS: PROTHROMBIN TIME PATIENT 13.3 SEC (11.7-14.0)
[2021-07-17] MEDS ORDERED: TRANEXAMIC ACID 1,000 MG in IV NS 50ML -- 2ND BAG INJ ONE (08:00)
--- NOTE | 2021-07-17 08:08 | PREOP HP ---
DATE OF SERVICE: 07/17/2021 PREOPERATIVE HISTORY AND PHYSICAL CHIEF COMPLAINT: Right hip pain. HISTORY OF PRESENT ILLNESS: The patient is a 61-year-old female that had an anterior total hip in 01/2017 and has had increasing right hip pain over the past several months, also had some sciatica, but the groin pain is much more constant now, and followed with Dr. Flaherty from previous spinal surgery and his judgment is the pain is really coming more from the hip than neurologic and it feels like what her left hip felt like before surgery with giving her increasingly limited activities of daily living. PAST MEDICAL HISTORY: Significant for hypertension, kidney stones, spinal stenosis. SURGICAL HISTORY: Lumbar fusion, left hip replacement in 2017, left knee replacement previously. FAMILY HISTORY: Diabetes and cancer in her mom. SOCIAL HISTORY: She is a former smoker, quit many years ago. Occasional alcohol consumption. Denies drug use. MEDICATION LIST: Reviewed including tizanidine, Crestor, lisinopril, calcium, multivitamin. ALLERGIES: SHE LISTS AN ALLERGY OR INTOLERANCE TO LODINE. REVIEW OF SYSTEMS: Denies any chest pain, shortness of breath, recent fever, chills or other constitutional symptoms. PHYSICAL EXAMINATION: VITAL SIGNS: Blood pressure 124/73, pulse 83, respirations 20, temperature 98.5 and 97% saturation on room air. HEENT: Atraumatic, normocephalic. HEART: Regular rate and rhythm. LUNGS: Clear to auscultation bilaterally. ABDOMEN: Benign. EXTREMITIES: On examination of the right hip, she has increased leg length about 7-8 mm on the left compared to the right. Well-healed incision from anterior approach total hip arthroplasty on the left side. She is painful on the right hip on extremes of range of motion, which are already limited and resulting in pain in the right groin area. Negative straight leg raise bilaterally. Minimal tenderness over the trochanteric bursa. Normal alignment, stability, bilateral knees and ankles, with intact motor function, distal pulses, sensation, reflexes and skin in both upper extremities throughout. IMAGING STUDIES: X-rays show excellent alignment of total hip arthroplasty on the left, significant cyst formation and joint line narrowing on the right and some marginal osteophytes. IMPRESSION: 1. Primary osteoarthritis of right hip. 2. History of left total hip arthroplasty. TREATMENT PLAN: She is very familiar with the recovery process. She is excited to proceed with total hip arthroplasty on the right given her previous good results on the other side. We went through risks, benefits, postoperative course of a goal of evening up her leg length, although there may be based on stability concerns a leg length discrepancies, possibility of infection, nerve or blood vessel damage, instability, premature wear or loosening, medical or other anesthetic complications among others. All her questions were answered. She wishes to proceed with surgical evaluation and treatment, which will include [facility] observation to follow. MARIBELL DR: Hoda TID: [id number]
[2021-07-17] MEDS ORDERED: ONDANSETRON PF 4 MG/2 ML VIAL. ONE (08:55)
[2021-07-17] MEDS ORDERED: DEXAMETHASONE SOD PHOS 4 MG/ML VIAL ONE (08:55)
[2021-07-17] MEDS ORDERED: SEVOFLURANE 61 TO 120 MINUTES. IH ONE (08:55)
[2021-07-17] MEDS ORDERED: PHENYLEPHRINE in 0.9% NACL PF 1 MG/10 ML SYRINGE. IV ONE (08:55)
[2021-07-17] MEDS ORDERED: HYDROmorphone 2 MG/ML VIAL ONE ×2 (08:57→11:06)
[2021-07-17] MEDS ORDERED: KETAMINE HCL IN NACL, ISO-OSM 50 MG/5 ML SYRINGE ONE (08:58)
[2021-07-17] MEDS ORDERED: VANCOMYCIN 1 GM VIAL. ONE (09:54)
[2021-07-17] MEDS ORDERED: diphenhydrAMINE 50 MG/ML VIAL IVP PRN (10:30)
[2021-07-17] MEDS ORDERED: MORPHINE SULFATE 2 MG/ML INJ. IVP PRN (10:30)
[2021-07-17] MEDS ORDERED: CALCIUM CARBONATE 500 MG TAB.CHEW PO PRN (10:30)
[2021-07-17] MEDS ORDERED: fentaNYL PF VIAL 100 MCG/2 ML VIAL IVP PRN (10:30)
[2021-07-17] MEDS ORDERED: DEXTROSE 50% 25 GM / 50ML DISP.SYRIN. IV PRN (10:30)
[2021-07-17] MEDS ORDERED: ZOLPIDEM 5 MG TABLET. PO PRN (10:30)
[2021-07-17] MEDS ORDERED: PROCHLORPERAZINE 5 MG TABLET. PO PRN (10:30)
[2021-07-17] MEDS ORDERED: 0.9 % SODIUM CHLORIDE 10 ML DISP.SYRIN. IV PRN (10:30)
[2021-07-17] MEDS ORDERED: IV NORMAL SALINE 1000ML BAG 1,000 ML IV SCH (10:30)
[2021-07-17] MEDS ORDERED: fentaNYL PF VIAL 100 MCG/2 ML VIAL ONE (10:42)
[2021-07-17] MEDS ORDERED: MORPHINE SULFATE 2 MG/ML INJ. ONE (10:42)
[2021-07-17] MEDS: fentaNYL PF VIAL 100 MCG/2 ML VIAL IVP PRN ×2 (10:45→10:59)
[2021-07-17] MEDS: MORPHINE SULFATE 2 MG/ML INJ. IVP PRN ×2 (10:48→10:58)
[2021-07-17] MEDS ORDERED: PROCHLORPERAZINE 10 MG/2 ML VIAL. ONE (11:02)
[2021-07-17] MEDS: HYDROmorphone 2 MG/ML VIAL IVP PRN ×2 (11:09→11:18)
--- NOTE | 2021-07-17 11:30 | NUR ---
Arrived to unit by bed from PACU. Awakens easily but dozes off easily. O2 a t 2l per n/c. Right hip NILSON dressing is d/i with ice pack. Able to wiggle toes easily, warm touch and pedal pulses + bilaterally. CUCO's and SCD's on bilaterally. IVF's intact and infusing. No c/o at this time. Spouse at bedside. Side rails up x's 2 with call light in reach. Cont. monitor.
[2021-07-17] MEDS: ONDANSETRON ODT 4 MG TAB.RAPDIS. PO SCH ×3 (12:00→23:24)
[2021-07-17] MEDS: ONDANSETRON PF 4 MG/2 ML VIAL. IVP SCH ×3 (12:51→23:24)
--- NOTE | 2021-07-17 15:21 | PDOC4 ---
Operative Note Operative Note Date of surgery: 07/17/2021 Preoperative diagnosis: Degenerative joint disease right hip Postoperative diagnosis: Same Operative procedure: Right total hip arthroplasty with anterior approach Surgeon Carla Frame Welder Cargo Utility Trailers: Jair wynn Anesthesia: General Estimated blood loss: 500 cc Complications: None Drains: None Operative indications: Please see my orthopedic clinic note and dictated history and physical for detailed operative indications and note that we covered risks benefits postoperative course of the procedure, noting that she has been through a hip replacement procedure before and is very pleased with the results. We did discuss the goal of equalizing her leg lengths and that may not be entirely possible due to stability concerns which would override. We specifically discussed the possibility of infection leg length inequality, nerve or blood vessel damage premature wear or loosening medical or other anesthetic compl ications among others. All her questions were answered and she wishes to proceed with surgical evaluation and treatment having given informed consent Operative text: Patient was identified procedure verified patient placed in the supine position on the [place] fracture table after adequate amounts of general anesthesia were administered. All bony prominences were well-padded and left hip was prepped and draped in the standard sterile fashion. After timeout was performed patient procedure identified and verified an incision was made just distal to the anterior superior iliac spine running along the tensor fascia rohit for a distance of about 6 inches. Fascia was incised tensor fascia rohit was taken laterally and circumflex vessels were located and coagulated and the anterior capsule was exposed with the rectus femoris gently retracted medially along with the underlying fascia that was dissected free. Capsule was split in a T-shaped incision and superior aspect of the capsule was excised and further superior release was carried out with the hip in external rotation. Hip was returned to 40 degrees external rotation and a napkin ring cut was made with an Avenir Giovani broach for reference napkin ring was removed and femoral head was removed and sized. Reaming was carried out to a size 51 with a size 52 Biomet G7 acetabular shell was placed in proper version under fluoroscopic guidance and excellent scratch fit was noted. A 36 mm vitamin E liner was impacted into place. Femur was brought into maximum external rotation extension and adduction and release was carried out at the 11 o'clock position to free up the femur and retractors were placed medially and above the greater trochanter for maximum femoral exposure box osteotome was used along with the rattail rasp and successive size broaching up to a size 1 which provided excellent stability and fit within the canal. Calcar reaming was carried out and trial fitting with a - 3.5 36 mm head to reproduce leg length and offset appropriately under fluoroscopic guidance and matched leg lengths and offset to the contralateral left hip arthroplasty. Trial components were removed and a size 1 standard offset collared Avenir stem was impacted into place with a -3.5 ceramic 36 mm head. Excellent stability and range of motion were noted and leg length and offset were reproduced closely according to preoperative measurements and measurements from the contralateral side. Thorough irrigation carried out with normal saline solution and pulse lavage. Intra-articular mixture was injected subperiosteally throughout the joint capsule and subcutaneous areas and 1 g vancomycin sprinkled throughout the joint capsule area. Fascia was closed with #1 PDS strata fix suture in a running fashion subcutaneous closure with buried Vicryl skin closure with subcuticular Monocryl and a debora dressing was applied. Patient was returned to recovery room in stable condition having tolerated the procedure well. Jair wynn was present for the procedure and assisted in the patient positioning prepping draping retraction closure and dressings SLOAN CHAPIN MD Jul 17, 2021 15:21
[2021-07-17] MEDS ORDERED: WARFARIN 7.5 MG TABLET. PO ONE (16:00)
[2021-07-17] MEDS: FERROUS SULFATE 325 MG TABLET. PO SCH (17:23)
[2021-07-17] MEDS: oxyCODONE IR 5 MG TABLET PO PRN ×2 (17:23→23:23)
[2021-07-17] MEDS ORDERED: diphenhydrAMINE HCL 25 MG CAPSULE PO PRN (18:00)
[2021-07-17] MEDS: tiZANidine 4 MG TABLET. PO SCH (20:35)
[2021-07-17] MEDS ORDERED: ATORVASTATIN CALCIUM 40 MG TABLET. PO SCH (21:00)
[2021-07-18 02:08] VITALS: BP 108/67
[2021-07-18] MEDS: GABAPENTIN 100 MG CAPSULE. PO SCH ×2 (05:17→14:01)
[2021-07-18] MEDS: ONDANSETRON PF 4 MG/2 ML VIAL. IVP SCH (05:17)
[2021-07-18] MEDS: ONDANSETRON ODT 4 MG TAB.RAPDIS. PO SCH (05:17)
[2021-07-18] MEDS: traMADol 50 MG TABLET PO SCH ×3 (05:18→17:39)
[2021-07-18 05:19] VITALS: BP 155/87
[2021-07-18] MEDS ORDERED: MAGNESIUM HYDROXIDE 2,400 MG/30 ML ORAL.SUSP. PO PRN (06:00)
[2021-07-18] MEDS: oxyCODONE IR 5 MG TABLET PO PRN ×3 (07:27→15:38)
[2021-07-18] MEDS: ACETAMINOPHEN 500 MG TABLET PO SCH ×2 (07:28→14:01)
[2021-07-18] MEDS: tiZANidine 4 MG TABLET. PO SCH (07:28)
[2021-07-18 07:29] VITALS: BP 155/87
[2021-07-18] MEDS: FERROUS SULFATE 325 MG TABLET. PO SCH ×2 (07:29→17:39)
[2021-07-18 07:54] LABS: HEMATOCRIT 33.3 % (36.0-47.0); HEMOGLOBIN 11.2 g/dL (12.0-15.5)
[2021-07-18 08:08] LABS: PROTHROMBIN TIME PATIENT 15.1 SEC (11.7-14.0)
[2021-07-18] MEDS ORDERED: LISINOPRIL 20 MG TABLET PO SCH (09:00)
[2021-07-18] MEDS ORDERED: hydroCHLOROthiazide 12.5 MG CAPSULE PO SCH (09:00)
[2021-07-18] MEDS ORDERED: SENNOSIDES/DOCUSATE 8.6/50MG TABLET. PO SCH (09:00)
[2021-07-18] MEDS ORDERED: MELOXICAM 7.5 MG TABLET PO SCH (09:00)
[2021-07-18] MEDS ORDERED: NON FORMULARY ITEM (Ubidecarenone (Coq-10) 100 MG) PO SCH (09:00)
[2021-07-18] MEDS ORDERED: MULTIVITAMIN with MINERAL TABLET. PO SCH (09:00)
--- NOTE | 2021-07-18 09:53 | NUR ---
Pharmacy Warfarin Dosing Note S:Pharmacy consulted to assist with anticoagulation therapy started 07/17/21 with target INR: 1.6 - 2.5 O:FRANCESCA WYNNE is a 61 year old F with CIRILO LABS: Last INR: 1.2 Last HGB: 11.2 Last HCT: 33.3 Last PLT: -- Last dose of 7.5 mg given on 07/17/21 at 1724 Drug Interaction Changes: None A:INR of 1.2 is below desired range. Target range for this patient is: 1.6 - 2.5 P: Warfarin dose: 5 mg prior to discharge Bridge Therapy: None Next INR due outpatient on Friday07/23/21 Pharmacy anticoagulation service will continue to follow. OMI GRANDE RPH, 07/18/21 0934
[2021-07-18] MEDS ORDERED: ONDANSETRON ODT 4 MG TAB.RAPDIS. PO PRN (12:00)
[2021-07-18] MEDS ORDERED: ONDANSETRON PF 4 MG/2 ML VIAL. IVP PRN (12:00)
[2021-07-18] MEDS ORDERED: WARFARIN 5 MG TABLET. PO ONE (14:00)
[2021-07-18] MEDS ORDERED: BISACODYL 10 MG SUPP.RECT. PR PRN (16:00)
[2021-07-18] MEDS ORDERED: OXYC5CAP PO (17:36)
[2021-07-18] MEDS ORDERED: TRAM50TA PO (17:36)
[2021-07-18] MEDS ORDERED: WARF-31 PO (17:36)
--- NOTE | 2021-07-18 17:40 | SNU/HH DC ---
DISCHARGE WITH HOME HEALTH DISCHARGE INFORMATION: Discharge Date: Jul 18, 2021 Final Diagnosis: Status post total hip arthroplasty Condition on Discharge: Stable CODE STATUS: Code Status: Full HOME HEALTH: Face to Face: I certify this patient is under my care and that I, or a nurse practitioner or physician's assistant food service manager working with me, had a face to face encounter that meets the physician face to face encounter requirements with this patient on [07/18/21]. Medical Complications: S/P Joint Replacement Group Home For: Assess/Skilled Observatio RN For Eval/Treatment: Yes Physical Therapy For: Evalulation/Treatment Pt Meets Homebound Status: Limited distance walking POST DISCHARGE ORDERS: Activity Instructions for Disc: Activity as tolerated, Progressive ambulation Weight Bearing Status after Di: As tolerated Bathing Instructions: Shower-keep dressing dry, No Tub Bath until see DIET AFTER DISCHARGE: Regular Wound/Incision Care: Ice to area for comfort, Keep wound/cast CDI, Do not change dressing (Maintain nilson dressing, call if saturated. When suction machine stops, cut tail of dressing and tape over to maintain seal and discard suction box) Other wound/incision instructi: DO NOT change NILSON dressing. It stays in place till your appt CHECKS AFTER DISCHARGE: Checks after discharge: Check blood press - daily FOLLOW-UP: Follow Up With: Dr Aguirre on 08/01 at 10:15am in [address] at [facility]. [phone] Warfarin Follow UP: [facility] to determine warfarin dosage and testing TREATMENT/EQUIPMENT ORDERS: Adaptive Equipment Issued: None, Front wheeled walker CERTIFICATION STATEMENT: Certification Statement: Certification Statement: Based on the above finding, I certify that this patient is confined to the home and needs intermittent retirement care, physical therapy and/or speech therapy, or continues to need occupational therapy.~ This patient is under my care, and I have initiated the establishment of the plan of care.~ This patient will be followed by myself or a community physician who will periodically review the plan of care. Home Meds Active Scripts Tramadol Hcl (TRAMADOL HCL) 50 Mg Tablet, 50 MG PO Q4HRS PRN for MODERATE PAIN 4-6, #40 TAB Prov:SLOAN AGUIRRE MD 07/18/21 Oxycodone Hcl (OXYCODONE HCL) 5 Mg Capsule, 5 MG PO PRN Q6HRS PRN for SEVERE PAIN 7-10, #40 TAB 0 Refills Prov:SLOAN AGUIRRE MD 07/18/21 Oxycodone Hcl/Acetaminophen (OXYCODONE-ACETAMINOPHEN 5-325) 1 Each Tablet, 2 TAB PO PRN Q4HRS PRN for MODERATE PAIN, SEVERE PAIN, #60 Prov:NATCARLITOS EMBROIDERY CUTTER 07/16/16 Reported Medications Glucosamine/D3/Boswellia Daisy (OSTEO BI-FLEX CAPLET) 1 Each Tablet, 1 EACH PO DAILY for INFLAMMATION, TAB 07/03/21 Tramadol Hcl (TRAMADOL HCL) 50 Mg Tablet, 50 MG PO DAILY PRN for PAIN, TAB 0 Refills 07/03/21 Multivitamin (MULTI-VITAMIN DAILY) 1 Each Tablet, 1 EACH PO DAILY LAST DOSE TAKEN TODAY 08 AM NEXT DOSE TOMORROW 07/17/15 08 AM 07/08/16 Ubidecarenone (COQ-10) 100 Mg Capsule, 100 MG PO DAILY NONE TAKEN MAY RESUME 07/08/16 Lisinopril/Hydrochlorothiazide (LISINOPRIL-HCTZ 20-12.5 MG TAB) 1 Each Tablet, 1 TAB PO DAILY, #90 TAB 3 Refills LAST DOSE TAKEN TODAY 08 AM NEXT DOSE TOMORROW 07/17/16 08 AM 07/08/16 Tizanidine Hcl (TIZANIDINE HCL) 4 Mg Tablet, 1 TAB PO BID, #60 TAB NONE TAKEN TODAY 12/24/14 Rosuvastatin Calcium (CRESTOR) 5 Mg Tablet, 10 TAB PO DAILY, #30 TAB 5 Refills NEXT DOSE TONIGHT AT 09 AM 12/24/14 Diphenhydramine Hcl (BENADRYL ALLERGY) 25 Mg Tablet, 25 MG PO RESUME NEEDED, NONE TAKEN TODAY 12/24/14 SLOAN AGUIRRE MD Jul 18, 2021 17:40
--- NOTE | 2021-07-18 18:15 | NUR ---
Patient left with her around 1800. Discharge education completed by this nurse, therapy, pharmacy, and the doctor prior to dismissal. NILSON dressing CDI and instructions gone over. Coumadin given to the patient by pharmacy and addressed in detail with lab draws. HH set up per c4 planner. IV discontinued without complications. No concerns noted at discharge.
--- NOTE | 2021-07-23 13:34 | PATHOLOGY ---
[facility] Accession Number: [id number] . 01 Material submitted: . hip - RIGHT HIP BONE. Modifiers: right . 01 Clinical history: . RIGHT HIP PAIN, OSTEOARTHRITIS RIGHT TOTAL HIP ARTHROPLASTY ANTERIOR . 02 Diagnosis: Femoral head, anterior right total hip arthroplasty: - Advanced degenerative arthritis. - Avascular necrosis, focal. ([facility]; 07/23/2021) QTP 07/23/2021 0913 Local . 02 Electronically signed: . Jayjay Montiel MD, Pathologist NPI- [id number] . 01 Gross description: . The specimen is received in formalin designated "Miguelito Smith, right hip bone" and consists of a disfigured femoral head (4.4 x 4.3 x 3.0 cm) with a minimal amount of attached soft tissue and a previously disrupted portion of partially attached femoral neck (1.0 cm in length by 0.3 cm in diameter). The articular surface is pale yellow to lowery, smooth and focally granular. A prominent area of eburnation (4.0 x 2.8 cm) is identified. No osteophytic growths are present. Plater Supervisor sections are submitted in 2 cassettes following decalcification. ([facility]; 07/19/2021) DKA/DKA 07/19/2021 1040 Local . 02 Pathologist provided ICD-10: M16.11, M87.88 . 02 CPT . 794422, 338061 Specimen Comment: A courtesy copy of this report has been sent to [phone] Specimen Comment: Report sent to Performed at: [address], [place], [place] [id number] MD Ethan Barron MD Phone: [phone] Performed at: [address] [id number] MD Jayjay Montiel MD Phone: [phone]
== END 2021-07-18 18:00 | disposition home health service (06) ==
LOC: SURG 06:36 → 4 SOUTHEST 10:20
PROVIDERS: ADMIT Orthopaedic Surgery; ATTEND Orthopaedic Surgery
DX: M16.11 Unilateral primary osteoarthritis, right hip (principal); I10 Essential (primary) hypertension; M54.31 Sciatica, right side; Z87.442 Personal history of urinary calculi; Z87.891 Personal history of nicotine dependence; Z96.652 Presence of left artificial knee joint; Z96.642 Presence of left artificial hip joint; Z79.899 Other long term (current) drug therapy; Z98.890 Other specified postprocedural states; Z68.33 Body mass index [BMI] 33.0-33.9, adult
CPT/HCPCS: 27130; 36415; 76000; 85014; 85018; 85610; 85730; 86850; 86900; 86901; 96365; 96366; 96375; 97116; 97150; 97162; 97165; 97530; 97535; A4213; A4930; A6223; A6258; A6402; A6550; C1776; G0378; G0379; J0171; J0690; J0780; J1100; J1170; J2270; J2370; J2405; J2704; J2795; J3010; J3370; J2250

== ENCOUNTER → 2021-07-26 | Outpatient (CLI) | payer MEDICARE ==
[2021-07-18 07:29] VITALS: BP 155/87
[~2021-07-26] MED LIST changes: -ACETAMINOPHEN 500 MG TABLET PO PRN; -GABAPENTIN 300 MG CAPSULE. PO PRN; -IV RINGERS,LACTATED 1000ML 1,000 ML IV SCH; -MELOXICAM 7.5 MG TABLET PO ONE; +OXYC5CAP PO; -PROCHLORPERAZINE 10 MG/2 ML VIAL. IVP PRN; -TRANEXAMIC ACID 1,000 MG in IV NS 50ML -- 1ST BAG INJ ONE; +WARF-31 PO; -fentaNYL PF VIAL 100 MCG/2 ML VIAL IVP PRN
--- NOTE | 2021-07-26 13:08 | KCIC ---
Bilateral digital screening mammograms: Reason for examination: Routine screening. Comparison is made to previous studies dated back to 04/10/2017. Interpretation was made with the benefit of CAD. The skin and nipples show no abnormalities. No abnormal axillary lymph nodes are seen. The breast par enchyma is extremely dense. (Breast density: Category D) There are no dominant masses, suspicious ralf cifications or architectural distortion. A few benign calcifications are again seen. Impression: No evidence of malignancy. Recommend routine screening. Your patient's mammogram demonstrates that she has dense breast tissue (breast density category C or D), which could hide abnormalities, and if she has other risk factors for breast cancer that have bee n identified, she might benefit from supplemental screening tests that may be suggested by you as her ordering physician. Dense breast tissue, in and of itself, is a relatively common condition. Therefo re, this information is not provided to cause undue concern, but rather to raise your awareness and t o promote discussion with your patient regarding the presence of other risk factors, in addition to d ense breast tissue. Your patient's mammography results will be sent to her. BI-RADS Category 2: Benign. "Our facility is accredited by the [employer] Mammography Program." This patient's information has been entered into a reminder system for the patient to be notified wit h the results of her examination and a target date for the next mammogram. Electronically signed by: Maria L Mooney MD (07/26/2021 1:06 PM) [id number]
== END ==
LOC: KCIC MAMMO 11:35
PROVIDERS: ATTEND Obstetrics & Gynecology
DX: Z12.31 Encounter for screening mammogram for malignant neoplasm of breast (principal)
CPT/HCPCS: 77067

== ENCOUNTER 2021-12-19 13:09 | Emergency (ER) | payer MEDICARE ==
[~2021-12-19] VITALS: Ht 160 cm; Wt 85.2 kg
[~2021-12-19 13:09] MED LIST changes: +TIZA-75 PO; -TIZA4TAB2 PO
[2021-12-19] MEDS ORDERED: fentaNYL PF VIAL 100 MCG/2 ML VIAL ONE (13:40)
--- NOTE | 2021-12-19 13:43 | PHYS DOC ---
Past Medical History Past Medical History: High Cholesterol, Hypertension, Other Additional Past Medical Histor: cervical herniated discs Past Surgical History: Hip Replacement Additional Past Surgical Histo: back Smoking Status: Former Smoker Alcohol Use: Rarely Drug Use: None General Adult EDM: Chief Complaint: PAIN ON URINATION HPI: HPI: Patient is a 61 year old female who presents with states that she went to urgent care this past Friday and was diagnosed with a urinary tract infection. She states she was placed on Bactrim. She states her symptoms are getting worse and she now has blood in her urine and feels as though she is urinating " razor blades". Patient states that she is also now having a lot of blood in her urine. She states that she does have a history of kidney stone. She denies nausea, vomiting, abdominal pain, back pain, fever, diarrhea, constipation, chest pain, shortness of air, body aches, chills. Patient has a history of hip replacement, cervical disc herniation, high cholesterol, hypertension, kidney stone and former smoker. She states that she did take 2 doses of Azo this morning. Currently rating urethra pain at a 9 out of 10. Review of Systems: Review of Systems: Constitutional: Denies fever or chills. [] Eyes: Denies change in visual acuity. [] HENT: Denies nasal congestion or sore throat. [] Respiratory: Denies cough or shortness of breath. [] Cardiovascular: Denies chest pain or edema. [] GI: Denies abdominal pain, nausea, vomiting, bloody stools or diarrhea. [] : + dysuria. +Hematuria. + Urethral pain [] Musculoskeletal: Denies back pain or joint pain. [] Integument: Denies rash. [] Neurologic: Denies headache, focal weakness or sensory changes. [] Endocrine: Denies polyuria or polydipsia. [] Lymphatic: Denies swollen glands. [] Psychiatric: Denies depression or anxiety. [] Heart Score: C/O Chest Pain: No Current Medications: Current Medications Medications (Trade) Dose Ordered Sig/Nafisa Start Time Stop Time Status Last Admin Dose Admin Fentanyl Citrate (Fentanyl 2ml Vial) 25 mcg 1X ONCE 12/19/21 13:45 12/19/21 13:46 UNV Sodium Chloride 1,000 ml @ 1,000 mls/hr Q1H 12/19/21 13:45 12/19/21 14:44 UNV Allergies: Allergies: Allergies Coded Allergies Type Severity Reaction Last Updated Verified etodolac Allergy Intermediate 07/17/21 Yes Physical Exam: PE: Constitutional: Well developed, well nourished, no acute distress, non-toxic appearance. [] HENT: Normocephalic, atraumatic, bilateral external ears normal, oropharynx moist, no oral exudates, nose normal. [] Eyes: PERRLA, EOMI, conjunctiva normal, no discharge. [] Neck: Normal range of motion, no tenderness, supple, no stridor. [] Cardiovascular:Heart rate regular rhythm, no murmur [] Lungs & Thorax: Bilateral breath sounds clear to auscultation [] Abdomen: Bowel sounds normal, soft, no tenderness, no masses, no pulsatile masses. [] Skin: Warm, dry, no erythema, no rash. [] Back: No tenderness, no CVA tenderness. [] Extremities: No tenderness, no cyanosis, no clubbing, ROM intact, no edema. [] Neurologic: Alert and oriented X 3, normal motor function, normal sensory function, no focal deficits noted. [] Psychologic: Affect normal, judgement normal, mood normal. [] Normal physical exam Current Patient Data: Vital Signs: Vital Signs Date Time Temp Pulse Resp B/P (MAP) Pulse Ox O2 Delivery O2 Flow Rate FiO2 12/19/21 13:16 98.3 93 18 128/59 (82) 93 Room Air 98.3 EKG: EKG: [] Radiology/Procedures: Radiology/Procedures: [] Impression: [facility] [address] [place] [address] IMAGING REPORT Signed PATIENT: FRANCESCA WYNNE ACCOUNT: [id number] : 1960 LOCATION: ER AGE: 61 SEX: F EXAM STATUS: REG ER ORD. PHYSICIAN: JOSR PRADHAN APRN REASON: UTI, WORSENING SYPMTOMS, HX OF KIDNEY STONE PROCEDURE: CT ABDOMEN PELVIS WO CONTRAST PQRS Compliance Statement: One or more of the following individualized dose reduction techniques were utilized for this examination: 1. Automated exposure control 2. Adjustment of the mA and/or kV according to patient size 3. Use of iterative reconstruction technique CT ABDOMEN+PELVIS WO Clinical Indication: Reason: UTI, WORSENING SYPMTOMS, HX OF KIDNEY STONE / Spl. Instructions: / History: Comparison: CT lumbar spine without contrast July 15, 2016. Technique: Helical CT imaging of the abdomen and pelvis is performed without IV or oral contrast. Findings: Evaluation of solid organs and bowel is limited without oral and IV contrast, decreasing sensitivity for detection of pathology. There is a 6 mm nodular opacity in the posterior left lower lobe, incompletely seen on the first image. There is minimal atelectasis or scarring in the lingula. The cardiac size is normal. There is a small benign calcification along the hepatic dome. The liver, gallbladder, spleen, pancreas, adrenal glands, and abdominal aorta caliber are normal. There is mild atherosclerotic calcification. There is a punctate nonobstructing calculus in the lower pole the right kidney. There is no perinephric straining or hydronephrosis. The stomach is unremarkable. There is a small duodenal diverticulum. There is a small fat-containing umbilical hernia. There is no dilated small bowel. The appendix is normal. There is moderate diverticulosis of the descending and sigmoid colon. No colon wall thickening is identified. There is no abdominal adenopathy or free fluid. Atrophic uterus. The urinary bladder is not well evaluated due to beam hardening artifact from bilateral hip arthroplasties. Question whether there is bladder wall thickening. No obvious pelvic free fluid is identified. There is advanced degenerative spondylosis of the thoracolumbar spine. There are probably reactive endplate changes/sclerosis. There is mild right convexity l umbar scoliosis. There is posterior fusion hardware of L4-L5. Degenerative changes have increased and the posterior fusion hardware is new compared to 2016. IMPRESSION: 1. Limited evaluation of the urinary bladder due to beam hardening artifact from bilateral hip arthroplasties. Question whether there is bladder wall thickening. Suggest correlation with urinalysis to exclude cystitis. 2. There is a 6 mm nodular opacity in the posterior left lower lobe. Consider CT chest follow-up in 12 months if patient has risk factors for lung malignancy, otherwise no follow-up is required per Fleischner Society guidelines. 3. Punctate nonobstructing calculus of right kidney. 4. Moderate distal colon diverticulosis. Electronically signed by: Harry White MD (12/19/2021 2:29 PM) [id number] DICTATED and SIGNED BY: HARRY WHITE MD DATE: 12/19/21 [id number] 0 Course & Med Decision Making: Course & Med Decision Making Pertinent Labs and Imaging studies reviewed. (See chart for details) See HPI. Urine is foul-smelling and looks slightly thickened but it is also red in color. Patient did take 2 doses of Azo will which will turn her urine a different color also so it is hard to distinguish how much blood is actually in the urine. No CVA tenderness. Abdomen is soft and nontender. Vital signs are within normal limits. She is afebrile. Speaks in full clear sentences. Skin pink warm and dry. [] Dragon Disclaimer: Dragon Disclaimer: This electronic medical record was generated, in whole or in part, using a voice recognition dictation system. Departure Departure Impression: Primary Impression: UTI (urinary tract infection) Qualified Codes: N30.01 - Acute cystitis with hematuria Disposition: HOME / SELF CARE / HOMELESS Condition: STABLE Referrals: DARRELL KIM MD (PCP) Patient Instructions: Urinary Tract Infection Additional Instructions: Follow-up with your primary care provider this week. Stop taking the Bactrim and take the antibiotic I have prescribed you today and take with food. Remember the Azo will make your urine turn a orange color. Only take the Azo as directed and no more than it is directed to take. Drink a lot of water to stay hydrated and to flush your kidneys. If you begin having vomiting and cannot keep down fluids or fever return to the emergency room. Scripts Cefdinir (CEFDINIR) 300 Mg Capsule 1 CAP PO BID, #20 CAP Prov: JOSR PRADHAN BARREL CAP SETTER 12/19/21 JOSR PRADHAN APRN Dec 19, 2021 13:43
[2021-12-19] MEDS ORDERED: fentaNYL PF VIAL 100 MCG/2 ML VIAL IVP ONE (13:45)
[2021-12-19] MEDS ORDERED: cefTRIAXone IV Push 1 GM VIAL. IVP ONE (13:45)
[2021-12-19] MEDS ORDERED: IV NORMAL SALINE 1000ML BAG 1,000 ML IV SCH (13:45)
[2021-12-19 13:53] LABS: BASO % 0 % (0-3); EOS # 0.3 x10^3/uL (0.0-0.7); EOS % 2 % (0-3); HEMATOCRIT 39.1 % (36.0-47.0); HEMOGLOBIN 12.9 g/dL (12.0-15.5); LYMPH # 2.9 x10^3/uL (1.0-4.8); LYMPH % 25 % (24-48); MEAN CORPUSCULAR HEMOGLOBIN 29 pg (25-35); MEAN CORPUSCULAR HGB CONC 33 g/dL (31-37); MEAN CORPUSCULAR VOLUME 88 fL (79-100); MONO # 0.7 x10^3/uL (0.0-1.1); MONO % 6 % (0-9); NEUT # 7.5 x10^3/uL (1.8-7.7); NEUT % 66 % (31-73); PLATELET COUNT 334 x10^3/uL (140-400); RED BLOOD COUNT 4.47 x10^6/uL (3.50-5.40); RED CELL DISTRIBUTION WIDTH 15.4 % (11.5-14.5); WHITE BLOOD COUNT 11.4 x10^3/uL (4.0-11.0)
[2021-12-19 13:57] LABS: CLARITY,URINE TURBID; COLOR,URINE ORANGE
[2021-12-19 14:00] LABS: AMORPHOUS SEDIMENT,UR PRESENT /HPF; BACTERIA,URINE 0 /HPF (0-FEW); RBC,URINE TNTC /HPF (0-2); WBC,URINE TNTC /HPF (0-4)
[2021-12-19 14:08] LABS: CALCIUM 9.9 mg/dL (8.5-10.1); CREATININE 1.2 mg/dL (0.6-1.0); GFR 45.8; POTASSIUM 3.6 mmol/L (3.5-5.1)
[2021-12-19 14:15] LABS: ALBUMIN 4.3 g/dL (3.4-5.0); ALBUMIN/GLOBULIN RATIO 1.1 (1.0-1.7); TOTAL BILIRUBIN 0.3 mg/dL (0.2-1.0); TOTAL PROTEIN 8.2 g/dL (6.4-8.2)
--- NOTE | 2021-12-19 14:32 | RAD ---
PQRS Compliance Statement: One or more of the following individualized dose reduction techniques were utilized for this examinat ion: 1. Automated exposure control 2. Adjustment of the mA and/or kV according to patient size 3. Use of iterative reconstruction technique CT ABDOMEN+PELVIS WO Clinical Indication: Reason: UTI, WORSENING SYPMTOMS, HX OF KIDNEY STONE / Spl. Instructions: / Hist ory: Comparison: CT lumbar spine without contrast July 15, 2016. Technique: Helical CT imaging of the abdomen and pelvis is performed without IV or oral contrast. Findings: Evaluation of solid organs and bowel is limited without oral and IV contrast, decreasing sensitivity for detection of pathology. There is a 6 mm nodular opacity in the posterior left lower lobe, incompletely seen on the first imag e. There is minimal atelectasis or scarring in the lingula. The cardiac size is normal. There is a small benign calcification along the hepatic dome. The liver, gallbladder, spleen, pancrea s, adrenal glands, and abdominal aorta caliber are normal. There is mild atherosclerotic calcificatio n. There is a punctate nonobstructing calculus in the lower pole the right kidney. There is no perinephr ic straining or hydronephrosis. The stomach is unremarkable. There is a small duodenal diverticulum. There is a small fat-containing umbilical hernia. There is no dilated small bowel. The appendix is normal. There is moderate divertic ulosis of the descending and sigmoid colon. No colon wall thickening is identified. There is no abdom inal adenopathy or free fluid. Atrophic uterus. The urinary bladder is not well evaluated due to beam hardening artifact from bilate ral hip arthroplasties. Question whether there is bladder wall thickening. No obvious pelvic free flu id is identified. There is advanced degenerative spondylosis of the thoracolumbar spine. There are probably reactive en dplate changes/sclerosis. There is mild right convexity lumbar scoliosis. There is posterior fusion h ardware of L4-L5. Degenerative changes have increased and the posterior fusion hardware is new compar ed to 2015. IMPRESSION: 1. Limited evaluation of the urinary bladder due to beam hardening artifact from bilateral hip arthr oplasties. Question whether there is bladder wall thickening. Suggest correlation with urinalysis to exclude cystitis. 2. There is a 6 mm nodular opacity in the posterior left lower lobe. Consider CT chest follow-up in 12 months if patient has risk factors for lung malignancy, otherwise no follow-up is required per [employer] Society guidelines. 3. Punctate nonobstructing calculus of right kidney. 4. Moderate distal colon diverticulosis. Electronically signed by: Harry White MD (12/19/2021 2:29 PM) [id number]
[2021-12-19] MEDS ORDERED: CEFD300C PO (14:45)
[2021-12-19 15:38] VITALS: BP 117/75
== END 2021-12-19 15:41 | disposition home or self-care (01) ==
LOC: ER 13:09
DX: N30.01 Acute cystitis with hematuria (principal); I10 Essential (primary) hypertension; E78.00 Pure hypercholesterolemia, unspecified; Z87.891 Personal history of nicotine dependence; Z87.442 Personal history of urinary calculi; Z88.8 Allergy status to other drugs, medicaments and biological substances
CPT/HCPCS: 36415; 74176; 80053; 81001; 85025; 87086; 96361; 96374; 96375; 99284; J0696; J3010; J7030